=== PATIENT | female | born 1995 | race Caucasian/White ===

== ENCOUNTER → 2017-07-24 15:25 | Emergency (ER) | payer BC ==
[2017-07-24 15:33] VITALS: BP 111/69
== END | disposition left against medical advice (07) ==
LOC: ED 15:25
DX: R11.10 Vomiting, unspecified (principal); Z53.21 Procedure and treatment not carried out due to patient leaving prior to being seen by health care provider

== ENCOUNTER 2018-03-07 01:36 | Inpatient (IN) | payer BC, MEDICAID ==
[2018-03-07] MEDS ORDERED: Oxytocin in LR* 20 UNITS/1,000 ML BAG IVPB SCH ×2 (03:00→22:00)
[2018-03-07] MEDS ORDERED: Oxytocin in LR* 20 UNITS/1,000 ML BAG IVPB ONE (03:28)
[2018-03-07 04:06] LABS: Hematocrit 36 % (35-47); Hemoglobin 11.9 g/dl (12.0-16.0); Mean Corpuscular HGB Conc 33 g/dl (31-36); Mean Corpuscular Hemoglobin 31 pg (27-31); Mean Corpuscular Volume 92 fL (80-97); Mean Platelet Volume 9.5 um3 (7.4-10.4); Platelet Count 202 10^3/ul (150-450); Red Blood Count 3.89 10^6/ul (4.0-5.4); Red Cell Distribution Width 14 % (10.5-15); White Blood Count 17.6 10^3/ul (3.5-10.8)
--- NOTE | 2018-03-07 06:47 | HP ---
General Information - General Information Maternal Age: 22 Grav: 2 Para: 0 SAB: 1 IEA: 0 Estimated Due Date: 03/17/18 Determined By: Early Ultrasound Gestational Age in Weeks and Days: 38 Weeks and 4 Days Maternal Blood Type and Rh: A Positive - Results this Serology/RPR Result: Non-Reactive Rubella Result: Immune HBsAg Result: Negative HIV Result: Negative GBS Culture Result: Negative Past Medical History Delivery History: See Records Pertinent Past Medical History: See Records Pertinent Past Surgical History: None Pertinent Family History: Non-Contributory - Antepartal Records Antepartal Records: Reviewed, Complicated by: - hsv 2 / high msafp/ Review of Systems Constitutional: Comfortable CV Complaint: No Respiratory: Shortness of Breath: No Gastrointestinal: No Nausea/Vomiting Genitourinary: Leaking Fluid Musculoskeletal: No Complaint Neurological: No Headache Movement: Normal Exam Allergies/Adverse Reactions: Allergies No Known Allergies Allergy (Verified 03/07/18 06:22) Lab Values - Entire Visit: Laboratory Tests 03/07/18 03/07/18 03/07/18 02:04 03:45 03:45 WBC 17.6 H RBC 3.89 L Hgb 11.9 L Hct 36 MCV 92 MCH 31 MCHC 33 RDW 14 Plt Count 202 MPV 9.5 Vag Amniotic Fld Detect Positive Blood Type A Positive Antibody Screen Negative - Measurements Height: 5 ft 3 in Weight: 186 lb Weight in lbs: 186 Body Mass Index (BMI): 32.9 Pre- Weight: 130 lb Weight Gained This : 56 lbs and 0 ozs - Exam Breast: Breast Exam Deferred Extremities: Edema - +1 Heart: Normal Rhythm/Heart Sounds HEENT: No Significant Findings Lungs: Clear Bilaterally Rectal: Rectal Exam Deferred Targeted Exam Findings See L&D Outpatient Visit Provider Note for Findings: N/A Cervical Exam: 3cm Effacement: 80% Station: -1 Presenting Part: Vertex Membrane Status: Leaking Amniotic Fluid Evaluation: Positive ROM Plus EFM Findings - External Monitor Findings Baseline Heart Rate: 135 External Monitor Findings: Accelerations Present, Variability Moderate External Monitor Findings Comment: category 1 Contractions: Irregular Assessment/Plan - Reason for Visit Reason for Visit: srom no labor start pitocin/ discussed with patient - Plan Plan: Induction
[2018-03-07] MEDS ORDERED: OBEPIDURAL* 250 ML EPIDURAL ONE (08:48)
[2018-03-07] MEDS ORDERED: Phenylephrine IV* 40 MCG/ML 10 ML SYRINGE IV PUSH PRN ×2 (09:35)
[2018-03-07] MEDS ORDERED: Famotidine TAB* 20 MG PO PRN (09:35)
[2018-03-07] MEDS ORDERED: Sodium Citrate/Citric Acid* 15 ML UDC PO PRN (09:35)
[2018-03-07] MEDS ORDERED: OBEPIDURAL* 250 ML EPIDURAL SCH (10:00)
[2018-03-07] MEDS ORDERED: Acetaminophen TAB* 325 MG PO PRN (21:22)
[2018-03-07] MEDS ORDERED: Witch Hazel PAD* JAR TOPICAL PRN (21:22)
[2018-03-07] MEDS ORDERED: Dibucaine 1% 28.35 GM TUBE PR PRN (21:22)
[2018-03-07] MEDS: Ibuprofen TAB* 600 MG PO PRN (23:57)
[2018-03-08 06:42] LABS: Hematocrit 34 % (35-47); Hemoglobin 11.4 g/dl (12.0-16.0); Mean Corpuscular HGB Conc 34 g/dl (31-36); Mean Corpuscular Hemoglobin 31 pg (27-31); Mean Corpuscular Volume 91 fL (80-97); Mean Platelet Volume 9.5 um3 (7.4-10.4); Platelet Count 181 10^3/ul (150-450); Red Cell Distribution Width 14 % (10.5-15); White Blood Count 23.9 10^3/ul (3.5-10.8)
[2018-03-08] MEDS ORDERED: Phenylephrine IV* 40 MCG/ML 10 ML SYRINGE ONE (06:56)
[2018-03-08 07:09] LABS: Monocytes % 3 % (0-7)
[2018-03-08] MEDS ORDERED: Simethicone TAB* 80 MG TAB.CHEW PO SCH (08:30)
[2018-03-08] MEDS ORDERED: Ferrous Gluconate TAB* 324 MG TAB PO SCH (09:00)
[2018-03-08] MEDS: Docusate CAP* 100 MG PO SCH ×3 (09:07→21:51)
[2018-03-08] MEDS: Ibuprofen TAB* 600 MG PO PRN ×2 (12:07→18:03)
[2018-03-09] MEDS: Ibuprofen TAB* 600 MG PO PRN ×2 (00:04→08:06)
[2018-03-09] MEDS: Docusate CAP* 100 MG PO SCH (08:06)
[2018-03-09 08:12] VITALS: BP 113/78
== END 2018-03-09 13:45 | disposition home or self-care (01) | DRG 560 ==
LOC: MCHOBOUT 01:36 → MCHOB 04:23
PROVIDERS: ADMIT Obstetrics & Gynecology; ATTEND Obstetrics & Gynecology
PROC: 10E0XZZ Delivery of Products of Conception, External Approach (ICD-10-PCS; principal; 2018-03-07)
PROC: 0UQMXZZ Repair Vulva, External Approach (ICD-10-PCS; 2018-03-07)
DX: O99.344 Other mental disorders complicating childbirth (principal); O70.0 First degree perineal laceration during delivery; M06.9 Rheumatoid arthritis, unspecified; F41.8 Other specified anxiety disorders; Z87.891 Personal history of nicotine dependence; Z3A.38 38 weeks gestation of pregnancy; Z37.0 Single live birth
CPT/HCPCS: 36415; 84112; 85025; 85027; 85060; 86850; 86900; 86901; A9270-GY

== ENCOUNTER 2021-07-15 04:09 | Inpatient (IN) ==
[2021-07-15] MEDS ORDERED: Buffered Lidocaine 1% SYRIN 1 ml INTRADERM ONE (04:34)
[2021-07-15] MEDS ORDERED: Lactated Ringers 1000 ml BAG 1,000 ML IV ONE ×2 (04:34→08:29)
[2021-07-15] MEDS ORDERED: Lactated Ringers 1000 ml BAG 1,000 ML IV SCH ×3 (05:00→09:00)
[2021-07-15 05:22] LABS: ABS Basophils 0.1 10^3/ul (0-0.2); ABS Eosinophils 0.2 10^3/ul (0-0.6); ABS Lymphocytes 2.4 10^3/ul (1.0-4.8); ABS Monocytes 1.1 10^3/ul (0-0.8); ABS Neutrophils 13.6 10^3/ul (1.5-7.7); Eosinophil % 1.1 %; Hematocrit 33 % (35-47); Hemoglobin 10.4 g/dL (12.0-16.0); Lymphocyte % 14.1 %; Mean Corpuscular HGB Conc 32 g/dL (31-36); Mean Corpuscular Hemoglobin 26 pg (27-31); Mean Corpuscular Volume 81 fL (80-97); Mean Platelet Volume 9.4 fL (7.4-10.4); Nucleated Red Blood Cells % 0.1; Platelet Count 254 10^3/uL (150-450); Red Blood Count 4.05 10^6 /uL (3.70-4.87); Red Cell Distribution Width 16 % (10-15); White Blood Count 17.3 10^3/uL (3.5-10.8)
[2021-07-15] MEDS ORDERED: Promethazine INJ(RESTRICTED) 25 MG/ML 1 ml VIAL IV ONE (05:22)
[2021-07-15] MEDS ORDERED: Morphine 10 MG/ML VIAL (1 ml) IV ONE (05:22)
[2021-07-15 06:00] LABS: Rapid COVID-19 Molecular Undetected (Undetected)
[2021-07-15 06:17] LABS: Urine Benzodiazepine Screen None Detected (None Detect); Urine Cannabinoids Screen None Detected (None Detect); Urine Opiates Screen None Detected (None Detect)
[2021-07-15] MEDS ORDERED: OBEPIDURAL 250 ML EPIDURAL ONE (07:30)
[2021-07-15] MEDS ORDERED: Phenylephrine 40 mcg/mL 10mL (400mcg) SYRINGE ONE (07:43)
[2021-07-15] MEDS ORDERED: Phenylephrine 40 mcg/mL 10mL (400mcg) SYRINGE IV PUSH PRN ×2 (08:29)
[2021-07-15] MEDS ORDERED: Sodium Citrate/Citric Acid LIQ 15 ML UDC PO PRN (08:29)
[2021-07-15] MEDS ORDERED: EPHEDrine (Pressors) 50 MG/ML VIAL IV PUSH PRN ×2 (08:29)
[2021-07-15] MEDS ORDERED: Lactated Ringers 1000 ml BAG 500 ML IV PRN ×2 (08:29)
[2021-07-15 08:59] LABS: Urine Appearance Cloudy; Urine Bilirubin Negative (Negative); Urine Blood 3+ (Negative); Urine Color Yellow; Urine Glucose Negative (Negative); Urine Ketones Negative (Negative); Urine Nitrite Negative (Negative); Urine Protein Negative (Negative); Urine Specific Gravity 1.012 (1.002-1.030); Urine Urobilinogen Negative (Negative)
[2021-07-15] MEDS ORDERED: OBEPIDURAL 250 ML EPIDURAL SCH (09:00)
[2021-07-15 09:17] LABS: Urine Bacteria Absent (Absent); Urine Red Blood Cell 3+(>10/hpf) (Absent); Urine Squamous Epithelial Cell Present (Absent); Urine Transitional Epithelial Present (Absent); Urine White Blood Cell Trace(0-5/hpf) (Absent)
[2021-07-15] MEDS ORDERED: Oxytocin in LR 0 UNITS/0 ML BAG IVPB ONE (10:05)
[2021-07-15] MEDS ORDERED: Dibucaine 1% OINT 28.35 GM TUBE PR PRN (10:40)
[2021-07-15] MEDS ORDERED: Varicella Virus Vaccine Live 0.5 ML VIAL SUBCUT ONE (10:40)
[2021-07-15] MEDS ORDERED: Glycerin ADULT 2.4 gm SUPP PR PRN (10:40)
[2021-07-15] MEDS ORDERED: Witch Hazel PAD JAR TOPICAL PRN (10:40)
[2021-07-15] MEDS ORDERED: Lidocaine 1% MPF 5 ML VIAL ONE (14:50)
[2021-07-16 07:25] LABS: ABS Basophils 0.1 10^3/ul (0-0.2); ABS Eosinophils 0.3 10^3/ul (0-0.6); ABS Lymphocytes 3.4 10^3/ul (1.0-4.8); ABS Monocytes 0.8 10^3/ul (0-0.8); ABS Neutrophils 10.2 10^3/ul (1.5-7.7); Eosinophil % 1.9 %; Hematocrit 29 % (35-47); Hemoglobin 9.5 g/dL (12.0-16.0); Lymphocyte % 22.8 %; Mean Corpuscular HGB Conc 33 g/dL (31-36); Mean Corpuscular Hemoglobin 27 pg (27-31); Mean Corpuscular Volume 80 fL (80-97); Mean Platelet Volume 9.1 fL (7.4-10.4); Platelet Count 210 10^3/uL (150-450); Red Blood Count 3.61 10^6 /uL (3.70-4.87); Red Cell Distribution Width 16 % (10-15); White Blood Count 14.7 10^3/uL (3.5-10.8)
[2021-07-16 08:03] VITALS: BP 113/62
== END 2021-07-16 14:35 | disposition home or self-care (01) | DRG 560 ==
LOC: MCHOBOUT 04:09 → MCHOB 05:30
PROVIDERS: ADMIT Midwife; ATTEND Midwife